=== PATIENT | male | born 1980 | race Caucasian/White ===

== ENCOUNTER → 2019-04-08 | Outpatient (REF) | payer BC ==
[~2019-04-08] MED LIST: CEP500 PO
== END ==
LOC: ZZSENDIN 17:43
PROVIDERS: ATTEND Family Medicine
DX: R63.4 Abnormal weight loss (principal)
CPT/HCPCS: 82310; 82330; 83970

== ENCOUNTER → 2019-04-14 | Outpatient (CLI) | payer BC ==
--- NOTE | 2019-04-14 19:19 | RADIOLOGY IMAGING REPORT ---
FACILITY: [facility] - [place], [place] PATIENT NAME: Jose G Barbosa : 1980 MR: [id number] V: [id number] EXAM DATE: ORDERING PHYSICIAN: PHIL BO TECHNOLOGIST: Location: [facility] Patient: Jose G Barbosa : 1980 Visit/Account:[id number] Date of Sevice: 04/14/2019 2 VIEWS CHEST INDICATION: Hypercalcemia COMPARISON: None available FINDINGS: Heart size within normal limits. There is no focal infiltrate or lobar consolidation. There is no pneumothorax or pleural effusion. Unremarkable appearance of the visualized spine without significant degenerative changes. IMPRESSION: 1. No acute cardiopulmonary process. Report Dictated By: Laith Hyman MD at 04/14/2019 7:12 PM Report E-Signed By: Laith Hyman MD at 04/14/2019 7:13 PM WSN:[email or web address]
--- NOTE | 2019-04-14 19:19 | RADIOLOGY IMAGING REPORT ---
FAC[place] [facility] [place]IENT NAME: Jose G Barbosa : 1980 MR: [id number] V: [id number] EXAM DATE: ORDERING PHYSICIAN: PHIL BO TECHNOLOGIST: Location: [facility] - [place] Patient: Jose G Barbosa : 1980 Visit/Account:[id number] Date of Sevice: 04/14/2019 PELVIS INDICATION: Hypercalcemia COMPARISON: None available FINDINGS: No evidence of fracture, dislocation, or acute osseous abnormality of the bones of the pelvis. Sacroiliac joints are widely patent. IMPRESSION: 1. No acute osseous abnormality of the pelvis Report Dictated By: Laith Hyman MD at 04/14/2019 7:11 PM Report E-Signed By: Laith Hyman MD at 04/14/2019 7:12 PM WSN:[email or web address]
== END ==
LOC: RAD 17:15
PROVIDERS: ATTEND Family Medicine
DX: E83.52 Hypercalcemia (principal)
CPT/HCPCS: 71046; 72170

== ENCOUNTER → 2019-04-21 | Outpatient (CLI) | payer BC ==
[~2019-04-21] MED LIST changes: +ATEN-1 PO; +IOPAMIDOL 76% 100 ML INFUS BTL 100 ML ONE
--- NOTE | 2019-04-21 16:48 | RADIOLOGY IMAGING REPORT ---
FACILITY: [facility] PATIENT NAME: Jose G Barbosa : 1980 MR: [id number] V: [id number] EXAM DATE: ORDERING PHYSICIAN: PHIL BO TECHNOLOGIST: [place] [facility] [place]: Jose G Barbosa : 1980 Visit/Account:[id number] Date of Sevice: 04/21/2019 CT CHEST ABDOMEN PELVIS W & W/O HISTORY: Hypercalcemia ADDITIONAL HISTORY: None. TECHNIQUE: Contiguous axial images acquired through the chest abdomen and pelvis with and without IV contrast. Coronal and sagittal reformatting was also performed. One of the following dose optimizat ion techniques was utilized in the performance of this exam: Automated exposure control; adjustment o f the mA and/or kV according to the patient's size; or use of an iterative reconstruction technique. Specific details can be referenced in the facility's radiology CT exam operational policy. Contrast: 75 mL Isovue-370 COMPARISON: None. FINDINGS: CHEST: Lungs/Pleura: Negative. Mediastinum/lymph nodes: Negative. No evidence of adenopathy. Heart/vessels: Negative. Bones/soft tissues: Negative ABDOMEN AND PELVIS: Hepatobiliary: Negative. Spleen: Negative. Pancreas: Negative. Adrenals: Negative. Kidneys ureters and bladder : There is bilateral nephrolithiasis with several small nonobstructive st one seen in the kidneys. Urinary bladder normal. Genitalia: Right testis is markedly enlarged measuring 8.7 x 7.9 cm diameter and is only partially ca ptured within the [id number]. GI: Negative. Vessels/spaces/nodes: There is a very large lobulated retroperitoneal mass encasing the aorta and IV C. This mass measures 11.2 cm AP by 15 cm transverse by 18.4 cm craniocaudad. There is scattered ca lcification seen to the mass and it appears to be comprised of smaller masses measuring up to 8 cm di ameter and probably represents large matted retroperitoneal lymphadenopathy. There are smaller satel lite nodes measuring up to 1.5 cm diameter. . Bones/soft tissues: There are no bone lesions identified concerning for metastatic disease. Ther e is L5-S1 spondylolysis without evidence of spondylolisthesis. Mild lumbar scoliosis. Additional findings: None pertinent. IMPRESSION: Markedly enlarged right testicle with extensive retroperitoneal adenopathy. Lymphoma with testicular involvement versus metastatic testicular carcinoma lead the differential. Consider testicular ultrasound for further evaluation of the right testicle. The retroperitoneal mas s is readily amenable to percutaneous biopsy if deemed clinically appropriate. Bilateral nonobstructive nephrolithiasis Results were called to PHIL BO at 04/21/2019 4:12 PM. Arrangements currently being made for t esticular ultrasound and CT percutaneous CT-guided biopsy of the large retroperitoneal mass. Report Dictated By: Ar Schulz MD at 04/21/2019 4:12 PM Report E-Signed By: Ar Schulz MD at 04/21/2019 4:40 PM WSN:[email or web address]
== END ==
LOC: CT 00:20
PROVIDERS: ATTEND Family Medicine
DX: N20.0 Calculus of kidney (principal); N44.8 Other noninflammatory disorders of the testis
CPT/HCPCS: 36415; 71270; 74178; 81001; 86480; Q9967

== ENCOUNTER 2019-04-22 01:05 | Day surgery (SDC) | payer BC ==
[~2019-04-22] VITALS: Ht 190.5 cm; Wt 91.6 kg
[2019-04-22] VITALS (8 sets, daily range): BP systolic 122–139; BP diastolic 77–96
[~2019-04-22 01:05] MED LIST changes: -ATEN-1 PO; -IOPAMIDOL 76% 100 ML INFUS BTL 100 ML ONE
[2019-04-22] MEDS ORDERED: ATEN-1 PO (09:44)
[2019-04-22] MEDS ORDERED: LIDOCAINE/SOD BICARB 8.4% SYR ID ONE (11:00)
[2019-04-22] MEDS ORDERED: NORMOSOL R SOLN(*) 1000 ML BAG 1,000 ML IV PRN (11:00)
[2019-04-22] MEDS ORDERED: MIDAZOLAM 2 MG/2 ML VIAL IVP PRN (11:00)
[2019-04-22 12:16] LABS: INR 1.03
[2019-04-22] MEDS ORDERED: MIDAZOLAM 2 MG/2 ML VIAL ONE (12:45)
[2019-04-22] MEDS ORDERED: KETAMINE HCL 500 MG/10 ML VIAL ONE (12:48)
[2019-04-22] MEDS ORDERED: fentaNYL CITR 100 MCG/2 ML AMP ONE (12:51)
[2019-04-22] MEDS ORDERED: NALOXONE HCL 0.4 MG/ML VIAL ONE (12:52)
--- NOTE | 2019-04-22 15:40 | RADIOLOGY IMAGING REPORT ---
FACILITY: [facility] - [place] PATIENT NAME: Jose G Barbosa : 1980 MR: [id number] V: [id number] EXAM DATE: ORDERING PHYSICIAN: PHIL BO TECHNOLOGIST: Location: [facility] Patient: Jose G Barbosa : 1980 Visit/Account:[id number] Date of Sevice: 04/22/2019 ADDENDUM #1 ADDENDUM: Note sedation and postoperative care was monitored by the department of anesthesiology and not the department of radiology. Report Dictated By: Alexis Humphries MD at 04/28/2019 3:01 PM Report E-Signed By: Alexis Humphries MD at 04/28/2019 3:[address] GUIDED BIOPSY ABDOMEN Indication: 30-year-old male with partially calcified retroperitoneal mass. Biopsy is requested. Informed consent was obtained from the patient prior to the start of procedure. Risks of bleeding, in fection and damage to adjacent organs were all discussed. Procedure: Following an official timeout documenting the patient's name and type of procedure the pat ient was placed supine on the CT table. Localizing images were obtained through the the abdomen. One of the following dose optimization techniques was utilized in the performance of this exam: Autom ated exposure control; adjustment of the mA and/or kV according to the patient's size; or use of an i terative reconstruction technique. Specific details can be referenced in the facility's radiology C T exam operational policy. Skin overlying the region was prepped and draped in usual sterile fashion. Following local anesthesia to the skin and subcutaneous tissues CT guidance was used to direct a 19-gauge coaxial needle into t he retroperitoneal mass that lies just behind the right anterior abdominal wall. Upon entry multiple 20-gauge core biopsies were obtained. Specimens were placed in formalin for upcoming pathologic magaly luation. Completion images showed no bleeding. During the procedure there was continuous monitoring of vital signs, oxygen saturation and EKG by Dr. Humphries and the department of anesthesiology during 14 minutes of intraservice procedure time. Conscio us sedation was provided by the newspaper vendor using Versed 2.0 mg and fentanyl 100 ug IV. IMPRESSION: 1. 38-year-old male with retroperitoneal mass that is partially calcified. 2. CT guidance was used to obtain multiple 20-gauge core biopsies of the mass. Specimens were place d in formalin for upcoming pathologic evaluation. Report Dictated By: Alexis Humphries MD at 04/22/2019 3:27 PM Report E-Signed By: Alexis Humphries MD at 04/22/2019 3:32 PM WSN:[email or web address]
--- NOTE | 2019-04-22 16:15 | NUR ---
SBAR from Nicci Moctezuma RN. Pt. given Ricky. Family states hx of irregular heart rate. Reports, not a new development. VSS. Assessment WNL.
[2019-04-27] MEDS ORDERED: PRED20TA6 PO (13:34)
== END 2019-04-22 16:47 | disposition home or self-care (01) ==
LOC: OR 01:05
PROVIDERS: ATTEND Family Medicine
DX: R19.00 Intra-abdominal and pelvic swelling, mass and lump, unspecified site (principal); I10 Essential (primary) hypertension; E83.52 Hypercalcemia; N28.9 Disorder of kidney and ureter, unspecified; D64.9 Anemia, unspecified; R63.4 Abnormal weight loss; R25.1 Tremor, unspecified; R79.89 Other specified abnormal findings of blood chemistry
CPT/HCPCS: 49180; 77012; 85049; 85610; 85730; 88305; J2250; J2310; J3010

== ENCOUNTER → 2019-04-27 | Outpatient (CLI) | payer BC ==
[~2019-04-27] MED LIST changes: +ATEN-1 PO; +HYDR-385 PO; +PRED20TA6 PO
[2019-04-27 12:19] LABS: PLATELET COUNT, AUTOMATED 250 K/uL (150-450)
== END ==
LOC: LAB 09:11
PROVIDERS: ATTEND Urology
DX: N50.89 Other specified disorders of the male genital organs (principal)
CPT/HCPCS: 36415; 82040; 82247; 82248; 82310; 82374; 82435; 82565; 82947; 83615; 84075; 84132; 84155; 84295; 84450; 84460; 84520; 85025

== ENCOUNTER → 2019-04-27 | Outpatient (CLI) | payer BC ==
--- NOTE | 2019-04-27 14:48 | RADIOLOGY IMAGING REPORT ---
FACILITY: [facility] - [place] PATIENT NAME: Jose G Barbosa : 1980 MR: [id number] V: [id number] EXAM DATE: ORDERING PHYSICIAN: PHIL BO TECHNOLOGIST: Location: [facility] [place] Patient: Jose G Barbosa : 1980 Visit/Account:[id number] Date of Sevice: 04/27/2019 TESTICULAR HISTORY: Right testicular mass on CT COMPARISON: CT chest abdomen pelvis April 21, 2019 FINDINGS: Testes: Right testicle is markedly enlarged extremely heterogeneous, hypervascular and contains micro calcifications measuring 12 x 7 x 9.6 cm. The left testicle measures 6 x 2.6 x 4 cm with normal vascular flow. There is a tiny 2 mm hypoechoic region which may represent small cyst along the superior pole of the left testicle Symmetric and un remarkable blood flow documented by color and Duplex Doppler ultrasound. Epididymides: The head epididymis on the right is not seen. The head epididymis on the left measures 1.5 cm in maximum dimension Blood flow is unremarkable in each epididymis by color Doppler ultrasou nd. Hydrocele: None. Varicocele: None. IMPRESSION: Right testicle is markedly enlarged, extremely heterogeneous and hypervascular containing microcalcif ications. This finding is strongly concerning for a primary testicular malignancy Report Dictated By: Nina Rea MD at 04/27/2019 2:35 PM Report E-Signed By: Nina Rea MD at 04/27/2019 2:39 PM WSN:[email or web address]
== END ==
LOC: US 01:21
PROVIDERS: ATTEND Family Medicine
DX: N50.89 Other specified disorders of the male genital organs (principal)
CPT/HCPCS: 76870

== ENCOUNTER 2019-04-28 00:23 | Day surgery (SDC) | payer BC ==
[~2019-04-28] VITALS: Ht 188 cm; Wt 95.3 kg
[~2019-04-28 00:23] MED LIST changes: -HYDR-385 PO
[2019-04-28] MEDS ORDERED: FAMOTIDINE 20 MG TAB PO ONE (12:00)
[2019-04-28] MEDS ORDERED: LIDOCAINE/SOD BICARB 8.4% SYR ID ONE (12:00)
[2019-04-28] MEDS ORDERED: MIDAZOLAM 2 MG/2 ML VIAL IVP PRN (12:00)
[2019-04-28] MEDS ORDERED: NORMOSOL R SOLN(*) 1000 ML BAG 1,000 ML IV PRN (12:00)
[2019-04-28] MEDS ORDERED: fentaNYL CITR 250 MCG/5 ML AMP ONE (13:13)
[2019-04-28] MEDS ORDERED: LIDOCAINE MPF 1% 5 ML VIAL ONE (13:15)
[2019-04-28] MEDS ORDERED: DEXAMETHASONE SOD PHOS 10MG/ML ONE (13:15)
[2019-04-28] MEDS ORDERED: PROPOFOL EMUL(*) 10MG/ML 20 ML 20 ML ONE (13:15)
[2019-04-28] MEDS ORDERED: ONDANSETRON 4 MG/2 ML VIAL ONE (13:15)
[2019-04-28] MEDS ORDERED: KETAMINE HCL 200 MG/20 ML MDV ONE (13:16)
[2019-04-28 13:49] VITALS: BP 145/93
[2019-04-28] MEDS ORDERED: BUPIVACAINE 0.5% INJ 50ML VIAL INFIL ONE (14:21)
[2019-04-28] MEDS ORDERED: IOPAMIDOL 20 ML VIAL IT ONE (14:32)
[2019-04-28] MEDS ORDERED: LEVOFLOXACIN/D5W*500 MG/100 ML 100 ML IVPB ONE (14:35)
[2019-04-28] MEDS ORDERED: HEPARIN SOD LCK FLSH 100 UN/ML ONE (14:38)
[2019-04-28] MEDS ORDERED: ROPIVACAINE 0.5% 20 ML VIAL ONE (14:39)
[2019-04-28] MEDS ORDERED: NS(*) 0.9% 10 ML VIAL 20 ML ONE (14:40)
--- NOTE | 2019-04-28 16:18 | Short(Outpt) Discharge Summary ---
Discharge Summary Reason for Hosp/Final Diag: (1) Testicular cancer Status: Chronic Hospital Course & Plan: Right IJ Power Port placed without problems. Departure Discharge to: Home, Self Care Discharge Instructions Home Meds Reported Medications Prednisone (PREDNISONE) 20 Mg Tablet, 20 MG PO QDAY, TAB 04/27/19 Atenolol (ATENOLOL) 50 Mg Tablet, 1 TAB PO QDAY, TAB 04/22/19 Diet: Regular Activity: As Tolerated Special Instructions: Your chemotherapy port was placed without any problems. You may shower starting on 04/30/19. After showering, leave the incisions in your neck and chest open to air but leave the steristrips in place until they fall off on their own. Leave the dressing in place on your right groin until Dr. Callahan says it can be removed. Don't immerse the incisions for 2 weeks. The suture in your right neck SHOULD fall out in the next 2-3 weeks but if it doesn't, gently tug on it and if it doesn't easily pull out then call my office at [phone] and we can have you come in to remove the suture. Problem Qualifiers (1) Testicular cancer: Descendance of testis: descended Laterality: right Qualified Codes: C62.11 - Malignant neoplasm of descended right testis PHIL MÁRQUEZ MD Apr 28, 2019 16:18
--- NOTE | 2019-04-28 16:24 | Post Operative Progress Note ---
Post Operative Progress Note Date: Apr 28, 2019 Time: 16:15 Surgeon: Mayito Dictation number: [id number] Anesthesia: GETA by Dr. Jackson Pre-Op Diagnosis: Testicular cancer Post-Op Diagnosis: TA Findings: None Procedure(s): Right IJ Power Port placement Specimen Removed:(May be N/A): None Complications: None Fluids: See anesthesia record Estimated Blood Loss: Minimal Date OP Note Dictated: Apr 28, 2019 Time OP Note Dictated: 16:15 PHIL MÁRQUEZ MD Apr 28, 2019 16:24
--- NOTE | 2019-04-28 16:24 | RADIOLOGY IMAGING REPORT ---
FACILITY: [facility] - [place] PATIENT NAME: Jose G Barbosa : 1980 MR: [id number] V: [id number] EXAM DATE: ORDERING PHYSICIAN: JASPREET WINKLER TECHNOLOGIST: Location: [facility] - [place] Patient: Jose G Barbosa : 1980 Visit/Account:[id number] Date of Sevice: 04/28/2019 Retrograde pyelogram HISTORY: Stent placement COMPARISON: CT scan 04/21/2019 FINDINGS: Fluoroscopy and imaging provided during retrograde pyelogram and stent placement. 13.1 sec onds of fluoroscopy time was utilized for a DAP of 0.9269 Gycm2. 2 images of the right kidney and ri ght renal collecting system are archived to PACS. These demonstrate retrograde pyelogram and stent p lacement. IMPRESSION: Fluoroscopy and imaging provided during retrograde study, please see the performing clini cians report for details. Report Dictated By: Jaky Silva MD at 04/28/2019 4:13 PM Report E-Signed By: Jaky Silva MD at 04/28/2019 4:17 PM WSN:[email or web address]
--- NOTE | 2019-04-28 16:34 | Urology Discharge Summary ---
Discharge Summary Reason for Hosp/Final Diag: (1) Testicular cancer Status: Chronic Departure Weight (Pounds): 210 Condition: Improved Discharge Instructions Home Meds Reported Medications Prednisone (PREDNISONE) 20 Mg Tablet, 20 MG PO QDAY, TAB 04/27/19 Atenolol (ATENOLOL) 50 Mg Tablet, 1 TAB PO QDAY, TAB 04/22/19 Activity: As Tolerated Special Instructions: Your chemotherapy port was placed without any problems. You may shower starting on 04/30/19. After showering, leave the incisions in your neck and chest open to air but leave the steristrips in place until they fall off on their own. Leave the dressing in place on your right groin until Dr. Callahan says it can be removed. Don't immerse the incisions for 2 weeks. The suture in your right neck SHOULD fall out in the next 2-3 weeks but if it doesn't, gently tug on it and if it doesn't easily pull out then call my office at [phone] and we can have you come in to remove the suture. Venous Thromboembolism Antithrombotics Is Pt On Any Antithrombotics?: No Problem Qualifiers (1) Testicular cancer: Descendance of testis: descended Laterality: right Qualified Codes: C62.11 - Malignant neoplasm of descended right testis JASPREET CALLAHAN MD Apr 28, 2019 16:34
[2019-04-28] MEDS ORDERED: HYDR-385 PO (16:47)
--- NOTE | 2019-04-28 16:50 | RADIOLOGY IMAGING REPORT ---
FACILITY: [facility] PATIENT NAME: Jose G Barbosa : 1980 MR: [id number] V: [id number] EXAM DATE: ORDERING PHYSICIAN: PHIL MÁRQUEZ TECHNOLOGIST: Location: [facility] Patient: Jose G Barbosa : 1980 Visit/Account:[id number] Date of Sevice: 04/28/2019 OR fluoroscopy films: Chest History: Port placement on right side Comparison:None Findings: Fluoroscopy and imaging was provided for Dr. Márquez. 20 seconds of fluoroscopy time was u tilized for a DAP of 0.7257 Gcym2. 2 images of the chest are archived to PACS which demonstrate right chest port, catheter tip is not included on the edge of the film but is at least in the distal SVC. [place] in the subcutaneous soft tissues overlying the chest wall. No obvious pneumothorax.. IMPRESSION: Fluoroscopy and imaging provided for Dr. Márquez please see his report for details. Report Dictated By: Jaky Silva MD at 04/28/2019 4:22 PM Report E-Signed By: Jaky Silva MD at 04/28/2019 4:42 PM WSN:[email or web address]
--- NOTE | 2019-04-28 16:51 | RADIOLOGY IMAGING REPORT ---
FACILITY: [facility] - [place] PATIENT NAME: Jose G Barbosa : 1980 MR: [id number] V: [id number] EXAM DATE: ORDERING PHYSICIAN: PHIL MÁRQUEZ TECHNOLOGIST: Location: [facility] [place] Patient: Jose G Barbosa : 1980 Visit/Account:[id number] Date of Sevice: 04/28/2019 Study: Single portable view of the chest. Indication: Port placement Comparison study: April 14, 2019 Technique: Single AP view of the chest demonstrates no evidence of acute infiltrate. There is no evid ence of pleural effusion or pneumothorax. The mediastinal, cardiac, and diaphragmatic contours are un remarkable. There is been interval placement of a right-sided chest implanted port. The tip the catheter overlie s the SVC. IMPRESSION: Status post port placement. There is no evidence of pneumothorax. Report Dictated By: Dennys Hurtado at 04/28/2019 4:41 PM Report E-Signed By: Dennys Hurtado at 04/28/2019 4:42 PM WSN:[email or web address]
[2019-04-28 17:00] VITALS: BP 137/87
[2019-04-28 17:09] VITALS: BP 111/92
[2019-04-28 17:11] VITALS: BP 111/80
--- NOTE | 2019-04-28 18:26 | NUR ---
1700- PT. TRANSITIONED TO PHASE 2 AND KEPT IN MY CARE. 170- PT. REPORTS THAT HE IS READY TO GO HOME SO ORTHOSTATICS PREFORMED. PT. DENIES ANY LIGHTHEADEDNESS OR DIZZINESS. 1715- PT. GETTING DRESSED WITH THE HELP OF HARVINDER. 1725- PT. IV TAKEN OUT AND PRESSURE DRESSING APPLIED. 1730- DISCHARGE INSTRUCTIONS GONE OVER WITH PT AND FAMILY. ALL QUESTIONS ANSWERED AND THEY ALL STATED UNDERSTANDING. 1740- PT UP TO GET INTO WHEELCHAIR PT. TURNED PALE AND STATED HE WAS NAUSEATED AND LIGHTHEADED. HE SAT IN THE WHEELCHAIR AND I GAVE HIM ORANGE JUICE AND CHEESE. PT. STATED THAT HE STARTED TO FEEL BETTER AND HIS COLOR WAS COMING BACK. 1745- PT. WALKED AROUND PARKER-OP AREA AND DENIED ANY LIGHTHEADEDNESS AND DIZZINESS. 1755- PT. ACCOMPANIED TO VEHICLE VIA WHEELCHAIR BY CELSA PONCE AND FAMILY.
--- NOTE | 2019-04-29 07:38 | OPERATIVE REPORT 1 ---
EVENT DATE: April 28, 2019 SURGEON: Eric Edmond MD ANESTHESIOLOGIST: Donny Jackson MD ANESTHESIA: General endotracheal. PREOPERATIVE DIAGNOSIS Right testicular cancer. POSTOPERATIVE DIAGNOSIS Right testicular cancer. PROCEDURE PERFORMED Right IJ PowerPort placement. ESTIMATED BLOOD LOSS Minimal. INDICATIONS Patient is a 38-year old male whom Dr. Callahan with Urology consulted me on because he was performing an orchiectomy and a cystoscopy with right ureter stent placement for hydronephrosis due to the bulky retroperitoneal tumor related to his testicular cancer. He asked if I would place a port at the same time in this patient, who will be getting chemotherapy for his newly diagnosed advanced testicular cancer. DESCRIPTION OF PROCEDURE The patient was brought to the operating room and placed supine on the operating table. General endotracheal anesthesia was administered and Dr. Callahan completed the cystoscopy with right ureteral stent placement and then his groin, neck and chest were prepped and draped in a sterile fashion. Dr. Callahan and I worked concurrently with the right orchiectomy as well as the port placement. The patient was in Trendelenburg. I identified the right internal jugular vein, accessed the vein with the needle on one attempt, thread the wire through the needle, removed the needle, used the C-arm to ensure the wire was in the SVC, which it was. I then anesthetized the skin in the neck as well as the right infraclavicular skin, made a stab incision in the neck with the wire in the skin and then made a transverse incision in the infraclavicular skin. I then dissected to the dermis of the infraclavicular skin and down on the subcutaneous tissues, down under the muscle fascia in this very trim patient and then created a pocket caudad to the incision. I made sure this was hemostatic and then used the tunneler and dragged the catheter from the pocket in the chest up into the stab incision in the neck. I then put the patient in Trendelenburg, thread the dilator and sheath over the wire and then took a picture and dilator and sheath were in the SVC so the wire and dilator were removed and then the catheter thread through sheath and then the sheath was removed. I then pulled the catheter back under fluoroscopic guidance so the tip was in the SVC just above the right atrium and cut it to length and placed the port on the catheter and locked in place with a locking cup. I then sewed the port down to the underlying muscle fascia with 2-0 Nylon at the corners. I then aspirated blood through the port and catheter and then flushed with 10 mm of normal saline followed by 5 mm of 100 units/mL of heparinated saline. It aspirated and flushed without any problems. I then took more C-arm images and the port placement and catheter placement looked good so I closed the incision in the neck with a single 3-0 Chromic suture and incision in the chest with interrupted 3-0 Vicryl deep dermal sutures and 4-0 Monocryl running subcuticular sutures. The skin was cleaned and dried and Steri-Strips were applied over each of the incisions. I then scrubbed out of the case while Dr. Callahan continued his portion of the case. After Dr. Callahan was completed, the patient was awakened, extubated and brought to the recovery room in good condition, having tolerated the procedure without any apparent problems. CONCEPCION
--- NOTE | 2019-04-29 07:48 | OPERATIVE REPORT 1 ---
EVENT DATE: April 28, 2019 SURGEON: Micheal Callahan MD ANESTHESIOLOGIST: Donny Jackson MD ANESTHESIA: LMA. PRODUCTION OPERATIONS INSPECTOR: None. PREOPERATIVE DIAGNOSIS Metastatic testicular carcinoma. POSTOPERATIVE DIAGNOSIS Metastatic testicular carcinoma. PROCEDURES PERFORMED 1. Cystoscopy with right retrograde pyelogram, placement of right double J stent. 2. Right radical orchiectomy. DESCRIPTION OF PROCEDURE After the adequate induction of LMA anesthesia, the patient was placed in the relaxed dorsal lithotomy position. The genitalia were scrubbed, prepped and draped in a sterile fashion and the bladder examined with the rigid cystoscope. The bladder itself was grossly normal and the ureteral orifices were orthotopic. I did a retrograde pyelogram, which did suggest dilation of the most proximal aspect of the right ureter and renal pelvis. I was able to position a Glidewire into the renal pelvis and positioned a 26 cm 6-Maldivian double J stent under cystoscopic and fluoroscopic guidance. His bladder was emptied and he was taken down out of the dorsal lithotomy position, converted to the supine position. Simultaneous with the orchiectomy, Dr. Edmond was able to position a chemotherapy port and that procedure will be dictated under a separate dictation. The right groin was scrubbed, prepped and draped in a sterile fashion and an incision created over the right inguinal canal, carried down to the fibers of the external oblique. This layer was opened in the direction of the fibers, giving exposure to the inguinal cord. This was dissected circumferentially and did need to be extended slightly more distally to allow delivery of the large tumor into the incision itself. Once accomplished, the cord was skeletonized up to the level of the internal ring and here it was doubly clamped and transected and passed off as specimen. The cord was then suture ligated with 0 silk in two places and the incision thoroughly infiltrated with 0.5% plain Marcaine. The oblique fascia was closed with a running 2-0 PDS. The subcutaneous tissue closed with 3-0 Vicryl and the skin closed with a 4-0 absorbable suture. Steri-Strips and Tegaderm were applied. He was aroused from anesthesia and then transported to PACU in stable condition. CONCEPCION
== END 2019-04-28 17:00 | disposition home or self-care (01) ==
LOC: OR 00:23
PROVIDERS: ATTEND Urology
DX: C62.11 Malignant neoplasm of descended right testis (principal)
CPT/HCPCS: 36561; 52005; 52332; 54530; 71045; 74420; 76000; 88307; C1758; C1894; C2617; J1100; J1956; J2001; J2250; J2405; J2704; J2795; J3010; J3490; Q9966

== ENCOUNTER → 2019-05-10 | Outpatient (CLI) | payer BC ==
[~2019-05-10] MED LIST changes: +HYDR-385 PO
== END ==
LOC: LAB 13:21
PROVIDERS: ATTEND Urology
DX: C62.90 Malignant neoplasm of unspecified testis, unspecified whether descended or undescended (principal); R74.8 Abnormal levels of other serum enzymes
CPT/HCPCS: 36415; 82105; 82310; 82330; 82374; 82435; 82565; 82947; 84132; 84295; 84520; 84702